=== PATIENT | male | born 1990 | race Caucasian/White ===

== ENCOUNTER 2022-11-14 15:34 | Outpatient (CLI) | payer BC, SELFPAY ==
--- NOTE | ~2022-11-14 | CT_ITS ---
EXAMINATION: CT sinus wo con DATE: 11/14/2022 15:51 INDICATION: Chronic sinusitis. TECHNIQUE: Computed tomography (CT) of the sinuses was performed without intravenous contrast. The mA was adjusted according to patient size. Iterative reconstruction technique was employed. Exam dose: 399.18 mGy-cm total exam DLP. COMPARISON: 11/27/2016 CT sinuses FINDINGS: Anterior plate and screws are noted along the left inferior orbital rim. Additional plate a nd screws along the deep breast anterior wall of left maxillary antrum. Rightward deviation of the nasal septum. Moderate soft tissue prominence of the nasal turbinates, lef t greater than right. There are bilateral nasal antral windows including resection of both uncinate processes. Moderately p rominent mucoperiosteal thickening of both maxillary sinuses. The frontal sinuses, ethmoid air cells and right sphenoid sinus are unremarkable. 7.5 x 10 mm polyp or mucous retention cyst of the anteromedial wall of the left sphenoid sinus. The mastoid air cells are well-developed and aerated bilaterally. IMPRESSION: Postoperative change (plates and screws) of left inferior orbital rim and the breast ant erior wall left maxillary antrum Bilateral nasal antral windows Moderately prominent mucoperiosteal thickening of the maxillary sinuses 7.5 x 10 mm polyp or mucous retention cyst of left sphenoid sinus Reviewed, dictated and finalized at [facility]. Reviewed, dictated and finalized at location [] IMPRESSION: Postoperative change (plates and screws) of left inferior orbital rim and the breast anterior wall left maxillary antrum Bilateral nasal antral windows Moderately prominent mucoperiosteal thickening of the maxillary sinuses 7.5 x 10 mm polyp or mucous retention cyst of left sphenoid sinus
== END 2022-11-14 15:35 ==
LOC: GOSHIMG 15:36
PROVIDERS: PCP Otolaryngology; Visit Provider Otolaryngology
DX: J01.90 Acute sinusitis, unspecified (principal)
CPT/HCPCS: 70486

== ENCOUNTER 2024-03-11 08:36 | Outpatient (CLI) | payer BC, SELFPAY ==
--- NOTE | ~2024-03-11 | XR_ITS ---
EXAMINATION: XR thoracic spine 2V, [id number] DATE: 03/11/2024 08:54 INDICATION: Neck and mid back pain with bilateral arm numbness TECHNIQUE: 1. AP, lateral and open-mouth odontoid views of the cervical spine were obtained. 2. AP, lateral and lateral swimmer's views of the thoracic spine were obtained. COMPARISON: None. FINDINGS: Cervical spine: There is straightening of the normal cervical lordosis. 5 degrees cervical levocurvature. Vertebral b odalis heights are normal. Moderate disc height loss with small anterior and posterior endplate osteophy kelly at C6-C7, bladder resulting in mild central canal stenosis. There is multilevel mild cervical fac et and uncovertebral osteoarthritis. Prevertebral soft tissues are unremarkable.. Thoracic spine: 4 degrees mid thoracic dextrocurvature. Vertebral body heights are normal. Moderate disc height loss at a couple mid thoracic levels, likely T6-T7 and T7-T8 with mild disc height loss at many of the rem aining thoracic levels. Visualized portion of lungs are clear with no evident pleural effusion or pne umothorax. Heart size is normal. IMPRESSION: 1. Mild to moderate lower cervical and mid thoracic predominant spondylosis. Reviewed, dictated and finalized at [facility]. IMPRESSION: 1. Mild to moderate lower cervical and mid thoracic predominant spondylosis.
== END 2024-03-11 08:37 | disposition home or self-care (01) ==
PROVIDERS: PCP Nurse Practitioner Family; Visit Provider Nurse Practitioner Family
DX: M47.812 Spondylosis without myelopathy or radiculopathy, cervical region (principal); M47.814 Spondylosis without myelopathy or radiculopathy, thoracic region
CPT/HCPCS: 72040; 72070

== ENCOUNTER 2024-05-24 12:43 | Outpatient (CLI) | payer BC, SELFPAY ==
--- NOTE | 2024-05-24 14:15 | NEURO_ITS ---
Impression: # Complains of pain and numbness of hands. ? # Left moderate Carpal Tunnel Syndrome. ? # Right mild Carpal Tunnel Syndrome. ? # No ulnar neuropathy. Nerve Conduction Studies Anti Sensory Summary Table ?Stim Site NR Peak (ms) P-T Amp (?V) Site1 Site2 Delta-P (ms) Dist (cm) Dashawn (m/s) Left Median Anti Sensory (2-3nd Digit) Wrist ? 4.7 11.4 Wrist 2-3nd Digit 4.7 14.0 30 Wrist ? 5.7 9.7 Wrist 2-3nd Digit 4.7 14.0 30 Right Median Anti Sensory (2-3nd Digit) Wrist ? 3.9 10.0 Wrist 2-3nd Digit 3.9 14.0 36 Wrist ? 3.8 17.0 Wrist 2-3nd Digit 3.9 14.0 36 Left Radial Anti Sensory (Base 1st Digit) Wrist ? 2.2 15.5 Wrist Base 1st Digit 2.2 0.0 Right Radial Anti Sensory (Base 1st Digit) Wrist ? 2.3 17.8 Wrist Base 1st Digit 2.3 0.0 Left Ulnar Anti Sensory (5th Digit) Wrist ? 2.7 26.0 Wrist 5th Digit 2.7 14.0 52 Right Ulnar Anti Sensory (5th Digit) Wrist ? 2.8 13.3 Wrist 5th Digit 2.8 14.0 50 Motor Summary Table ?Stim Site NR Onset (ms) O-P Amp (mV) Site1 Site2 Delta-0 (ms) Dist (cm) Dashawn (m/s) Left Median Motor (Abd Poll Brev) Wrist ? 5.4 2.2 Elbow Wrist 4.7 31.0 66 Elbow ? 10.1 2.7 Right Median Motor (Abd Poll Brev) Wrist ? 3.8 6.2 Elbow Wrist 5.7 31.0 54 Elbow ? 9.5 5.3 Left Ulnar Motor (Abd Dig Minimi) Wrist ? 2.7 5.7 A Elbow Wrist 5.5 32.0 58 A Elbow ? 8.2 3.6 Right Ulnar Motor (Abd Dig Minimi) Wrist ? 3.1 3.1 A Elbow Wrist 5.7 34.0 60 A Elbow ? 8.8 2.8 F Wave Studies ?NR F-Lat (ms) L-R F-Lat (ms) Left Median (Mrkrs) (Abd Poll Brev) ? 30.26 0.88 Right Median (Mrkrs) (Abd Poll Brev) ? 31.13 0.88 Left Ulnar (Mrkrs) (Abd Dig Min) ? 30.94 0.41 Right Ulnar (Mrkrs) (Abd Dig Min) ? 31.35 0.41 EMG ?Side Muscle Nerve Root Ins Act Fibs Amp Dur Recrt Comment Right 1stDorInt Ulnar C8-T1 Nml Nml Nml Nml Nml Right Ext Indicis Radial (Post Int) C7-8 Nml Nml Nml Nml Nml Right Ext Digitorum Radial (Post Int) C7-8 Nml Nml Nml Nml Nml Right BrachioRad Radial C5-6 Nml Nml Nml Nml Nml Right PronatorTeres Median C6-7 Nml Nml Nml Nml Nml Right Abd Poll Brev Median C8-T1 Nml Nml Nml Nml Nml Right ABD Dig Min Ulnar C8-T1 Nml Nml Nml Nml Nml Left 1stDorInt Ulnar C8-T1 Nml Nml Nml Nml Nml Left Ext Indicis Radial (Post Int) C7-8 Nml Nml Nml Nml Nml Left Ext Digitorum Radial (Post Int) C7-8 Nml Nml Nml Nml Nml Left BrachioRad Radial C5-6 Nml Nml Nml Nml Nml Left PronatorTeres Median C6-7 Nml Nml Nml Nml Nml Left Abd Poll Brev Median C8-T1 Nml Nml Nml Nml Nml Left ABD Dig Min Ulnar C8-T1 Nml Nml Nml Nml Nml Right Biceps Musculocut C5-6 Nml Nml Nml Nml Nml Right Triceps Radial C6-7-8 Nml Nml Nml Nml Nml Right Deltoid Axillary C5-6 Nml Nml Nml Nml Nml Left Biceps Musculocut C5-6 Nml Nml Nml Nml Nml Left Triceps Radial C6-7-8 Nml Nml Nml Nml Nml Left Deltoid Axillary C5-6 Nml Nml Nml Nml Nml MTDD
== END 2024-05-24 12:44 | disposition home or self-care (01) ==
LOC: ANHNEURO 12:44
PROVIDERS: PCP Nurse Practitioner Family; Visit Provider Nurse Practitioner Family
DX: G54.2 Cervical root disorders, not elsewhere classified (principal); M43.02 Spondylolysis, cervical region; M43.04 Spondylolysis, thoracic region
CPT/HCPCS: 95886; 95911

== ENCOUNTER → 2024-05-29 15:24 | Emergency (ER) | payer BC, SELFPAY ==
[2024-05-29 15:35] VITALS: BP 134/79; PULSE 97; RESP 16; TEMP 37; O2SAT 100
== END | disposition left against medical advice (07) ==
PROVIDERS: Emergency Provider Nurse Practitioner Family; PCP Nurse Practitioner Family
DX: J01.90 Acute sinusitis, unspecified (principal); F17.290 Nicotine dependence, other tobacco product, uncomplicated; F12.90 Cannabis use, unspecified, uncomplicated; K21.9 Gastro-esophageal reflux disease without esophagitis
CPT/HCPCS: 99213; G0463

== ENCOUNTER 2024-05-30 13:08 | Emergency (ER) | payer BC, SELFPAY ==
--- NOTE | 2024-05-30 13:48 | ED.URI ---
HPI - URI/Sore Throat General Chief Complaint: Upper Respiratory Infection Stated Complaint: Sinus/Left Side Facial Swelling Time Seen by Provider: 05/30/24 13:48 Source: patient, RN notes reviewed and old records reviewed Mode of arrival: ambulatory Limitations: no limitations History of Present Illness HPI Narrative: 34-year-old male presents to the [facility] with complaints of left-sided swelling, sinus congestion, pain and pressure. States has been going on for over a week. Has a history chronic sinus issues had seen ENT past. Patient with significant surgeries to the left side a space as well as wearing dentures. Related Data Home Medications ?Medication ?Instructions ?Recorded ?Confirmed ?Last Taken ?Type naproxen 500 mg tablet 500 mg PO Q12H 05/30/24 05/30/24 Unknown History Allergies Allergy/AdvReac Type Severity Reaction Status Date / Time Cephalosporins Allergy Severe Hives / Verified 05/30/24 13:44 Red Face Penicillins Allergy Unknown Unknown Verified 05/30/24 13:44 Review of Systems Review of Systems: All systems reviewed & are unremarkable except as noted in HPI and below Constitutional: Constitutional: Reports no additional constitutional complaints ENT: Reports as per HPI Cardiovascular: Cardiovascular: Reports no additional cardiovascular complaints, Denies chest pain and Denies dyspnea Respiratory: Respiratory: Reports no additional respiratory complaints, Denies chest congestion, Denies cough and Denies dyspnea Musculoskeletal: Musculoskeletal: Reports no additional musculoskeletal complaints Integumentary/Breasts: Skin/Breast: Reports system reviewed and no additional complaints, except as docu PMFSH Past Medical History Medical History Sinus problem GERD (gastroesophageal reflux disease) Fracture orbital fx, lt hand fx Surgical History Surgical History History of orthopedic surgery lt hand, orbital fx repair H/O vascular surgery multiple veins removed from lungs Family History Family History Mother Thyroid disorder Grandparent Lymphoma Grandparent Cerebrovascular accident Thyroid disorder Social History Social History Smoking packs per day: 1 Smoking cigarettes per day: 20.0 Years smoked: 5 Smoking pack-years: 5.00 Smoking status: Current every day smoker Tobacco type: e-cigarettes/vaping Alcohol intake: never Substance use: current Substance use type: marijuana Comments At the time of my signature, I reviewed and agree with the nursing past medical, surgical, social, and family history. There is no relevant family history pertinent to the patient complaint. Exam Const: General: cooperative, healthy appearing, comfortable, no acute distress, well developed, alert and well nourished Nutritional Appearance: well nourished Orientation/consciousness: patient oriented x3 Limitations: no limitations HENMT: Head: normal to inspection and no raccoon eyes Ears: hearing grossly normal bilaterally, external ears normal, TM's normal bilaterally, EAC's normal, mastoids normal and no periauricular adenopathy Face/Nose/Sinus: Normal nares present, Normal nasal mucous membranes and turbinates present, No ecchymosis, No erythema, edema (Left sinus, cheek swelling) and sinus tenderness (Left side) Face and sinus: normal facial exam, face symmetric and no erythema Mouth: Yes Normal oral and palatal mucosa present, Yes lip normal, Yes tongue normal and Yes moist mucous membranes Teeth and gingiva: gingiva abnormal edematous (Left upper with erythema) Throat: posterior oropharynx normal, uvula midline and no uvular edema Eyes: General: appearance normal, both eyes and all related structures Neck: Neck: normal visual inspection, full ROM, no lymphadenopathy and no meningeal signs Chest: Chest palpation & inspection: normal inspection of the chest Resp: Effort & Inspection: normal respiratory effort and able to speak in complete sentences Cardio: Rate: regular rate Skin: General skin exam: normal color and no rashes or lesions noted Neuro: General: patient oriented x3, gait normal, moves all extremities and no meningeal signs Cognition (Neuro): normal cognition Speech: normal speech Gait exam (Neuro): Normal gait present Extrem: General: normal to inspection, full ROM, capillary refill normal and normal gait Psych: Appearance: grossly normal and well kempt Mental Status: mental status grossly normal Speech and movement: Normal speech and movement present and Clear speech present Affect: normal affect Attitude: cooperative Course Course Level of Care: Express Care Visit Vital Signs Vital signs: Vital Signs Temperature 97.3 F L 05/30/24 13:53 Pulse Rate 98 05/30/24 13:53 Respiratory Rate 16 05/30/24 13:53 Blood Pressure 124/79 05/30/24 13:53 Pulse Oximetry 99 05/30/24 13:53 Oxygen Delivery Room Air 05/30/24 13:53 Temperature 97.3 F L 05/30/24 13:53 Pulse Rate 98 05/30/24 13:53 Respiratory Rate 16 05/30/24 13:53 Blood Pressure 124/79 05/30/24 13:53 Pulse Oximetry 99 05/30/24 13:53 Oxygen Delivery Room Air 05/30/24 13:53 Reviewed MDM - URI/Sore Throat MDM Narrative Medical decision making narrative: Patient sitting in exam room. Nontoxic, vitals stable. Patient presents with left-sided facial swelling, history of chronic sinus issues Discussed with patient sinusitis verses dental infections, could also concern for an abscess with of symptoms get worse he should be following up in the ER or at least seeing ENT or a dental provider for further evaluation Patient appropriate for outpatient treatment and follow-up Discharge instructions reviewed with patient, as well as provided in writing per nursing staff. The instructions also include specific and strict return/GO TO THE ER as well as f/u information. All questions have been answered, and the patient deny any further questions with discharge and discharge plan. Some parts of this dictation were generated by voice recognition software and may contain typographical and/or grammatical inaccuracies. Differential Diagnosis Differential diagnosis: Likely upper respiratory infection, otitis media, sinusitis and viral infection Critical Care Time Critical Care Time Critical Care Time: No Discharge Plan Discharge Clinical Impression: Sinusitis Qualifiers: Sinusitis location: unspecified location Chronicity: acute Recurrence: not specified as recurrent Qualified Code(s): J01.90 - Acute sinusitis, unspecified Patient Disposition: Home, Self-Care Condition: Stable Instructions: Antibiotic Form, Sinusitis (ED) Additional Instructions: Take Tylenol or Motrin for pain. Use a humidifier or vaporizer at night. Take Medications as prescribed. Drink plenty of water. 8-10 glasses per day. Use flonase 2 times per day for 5 days then daily Take mucinex 2 times per day and be sure to take with 8oz of water. Follow up with Primary provider if not getting better. Follow-up with ENT or dental provider Go directly to the emergency room for new or worsening symptoms Patient Language: Icelandic Prescriptions: New doxycycline monohydrate 100 mg tablet 100 mg PO BID Qty: 20 0RF No Action naproxen 500 mg tablet 500 mg PO Q12H bupropion HCl [Wellbutrin XL] 300 mg tablet extended release 24 hr 300 mg PO DAILY Qty: 90 3RF baclofen 10 mg tablet 10 mg PO QHS PRN (Reason: muscle spasm) Qty: 30 0RF testosterone 20.25 mg/1.25 gram (1.62 %) gel in metered-dose pump 1 pump topical DAILY Qty: 75 2RF Rx Instructions: apply 1 pump amount over max area of ONE upper arm and shoulder dextroamphetamine-amphetamine [Adderall XR] 20 mg capsule,extended release 24hr 20 mg PO DAILY Qty: 30 0RF hydroxyzine pamoate 25 mg capsule See Rx Instructions .ROUTE .COMPLEX Qty: 270 0RF Dose Instruction: TAKE 1 CAPSULE BY MOUTH THREE TIMES DAILY Rx Instructions: TAKE 1 CAPSULE BY MOUTH THREE TIMES DAILY tadalafil 10 mg tablet See Rx Instructions .ROUTE .COMPLEX Qty: 30 0RF Dose Instruction: TAKE 1 TABLET BY MOUTH NEEDED FOR SEXUAL ACTIVITY APPROXIMATELY 30 MINUTES PRIOR. MAX OF 1 TABLET EVERY 24 HOURS Rx Instructions: TAKE 1 TABLET BY MOUTH NEEDED FOR SEXUAL ACTIVITY APPROXIMATELY 30 MINUTES PRIOR. MAX OF 1 TABLET EVERY 24 HOURS Follow-up/Referrals: Tasneem Myles APRN [Primary Care Provider] - 1 Week ([facility] ) Stand Alone Forms: Work/School Release IP Time of Disposition: 14:09
[2024-05-30 13:53] VITALS: BP 124/79; PULSE 98; RESP 16; TEMP 36.3; O2SAT 99
== END 2024-05-30 14:09 | disposition home or self-care (01) ==
PROVIDERS: Emergency Provider Nurse Practitioner; PCP Nurse Practitioner Family
DX: J01.90 Acute sinusitis, unspecified (principal); F17.210 Nicotine dependence, cigarettes, uncomplicated; Z79.1 Long term (current) use of non-steroidal anti-inflammatories (NSAID)
CPT/HCPCS: 99213; G0463

== ENCOUNTER 2025-03-06 15:48 | Emergency (ER) | payer BC, SELFPAY ==
--- NOTE | 2025-03-06 15:57 | ED_ITS ---
HPI - Skin/Abscess/Foreign Bdy General Chief complaint: Skin/Abscess/Foreign Body Stated complaint: Possible Yeast Infection Time Seen by Provider: 03/06/25 16:05 Source: patient Mode of arrival: ambulatory Limitations: no limitations History of Present Illness HPI narrative: Ricardo is a 35-year-old male patient presenting with complaints of a possible yeast infection to his penis x2 weeks. He reports he just finished up around of Augmentin and developed a itchy red rash on the head of his penis. Denies any concerns for STIs. Denies any penile discharge. No fevers, chills, body aches. Has been applying some old yeast ointment medication and it has not been helping. Related Data Allergies Allergy/AdvReac Type Severity Reaction Status Date / Time Cephalosporins Allergy Severe Hives / Verified 03/06/25 16:02 Red Face Review of Systems Review of Systems: Pertinent positives per HPI. Patient denies any fever, chills, headache, visual changes, dizziness, cough, runny nose, sore throat, shortness of breath, chest pain, palpitations, nausea, vomiting, diarrhea, constipation, abdominal pain, or any urinary issues. [facility] Past Medical History Medical History Sinus problem GERD (gastroesophageal reflux disease) Fracture orbital fx, lt hand fx Surgical History Surgical History History of orthopedic surgery lt hand, orbital fx repair H/O vascular surgery multiple veins removed from lungs Family History Family History Mother Thyroid disorder Grandparent Lymphoma Grandparent Cerebrovascular accident Thyroid disorder Social History Social History Smoking packs per day: 1 Smoking cigarettes per day: 20.0 Years smoked: 5 Smoking pack-years: 5.00 Smoking status: Current every day smoker Tobacco type: e-cigarettes/vaping Alcohol intake: never Substance use: current Substance use type: marijuana Comments At the time of my signature, I reviewed and agree with the nursing past medical, surgical, social, and family history. There is no relevant family history pertinent to the patient complaint. Exam Narrative: General: Well-developed, well nourished, in no apparent distress. Head: Normocephalic, atraumatic. Cardio: Regular rate and rhythm, s1 and s2 normal, no murmur appreciated. Resp: Clear to auscultation bilaterally, no rhonchi, rales, wheezing or rubs. Abdomen: Soft, pliable, bowel sounds present in all quadrants, non-tender to palpation, no organomegly, no CVAT tenderness. : Circumcised male with 3 small red, raised, itchy bumps without discharge or vesicular appearance to the base of the penile head. No penile drainage or other lesions noted. Course Course Emergency Course: Portions of this record may have been created with voice recognition software. Level of Care: Express Care Visit Vital Signs Vital signs: Vital Signs Temperature 37.3 C 03/06/25 15:59 Pulse Rate 81 03/06/25 15:59 Respiratory Rate 16 03/06/25 15:59 Blood Pressure 140/87 03/06/25 15:59 Pulse Oximetry 97 03/06/25 15:59 Oxygen Delivery Room Air 03/06/25 15:59 Temperature 37.3 C 03/06/25 15:59 Pulse Rate 81 03/06/25 15:59 Respiratory Rate 16 03/06/25 15:59 Blood Pressure 140/87 03/06/25 15:59 Pulse Oximetry 97 03/06/25 15:59 Oxygen Delivery Room Air 03/06/25 15:59 Vital signs reviewed MDM - Skin/Abscess/Foreign Bdy MDM Narrative Medical decision making narrative: At the time of visit patient is resting comfortably on the exam table. Patient appears to be nontoxic. possible yeast infection to his penis x2 weeks. He reports he just finished up around of Augmentin and developed a itchy red rash on the head of his penis. Denies any concerns for STIs. Denies any penile discharge. No fevers, chills, body aches. Has been applying some old yeast ointment medication and it has not been helping. On exam patient has 3 areas of small red, raised, itchy bumps without discharge or vesicular appearance to thebase of the penis head. No penile drainage or other lesions noted. Plan: I suspect patient has balanitis. Prescription for nystatin and mupirocin cream was sent to the pharmacy. Proper hygiene was discussed with the patient he voiced understanding. Supportive measures were discussed with the patient and they voiced understanding discharge instructions and agrees to treatment plan. Return precautions reviewed Differential Diagnosis Differential diagnosis: Likely abscess of skin or subcutaneous tissue, cellulitis, eczema and other (Balanitis, herpes,, dermatitis) Discharge Plan Discharge Clinical Impression: Balanitis Patient Disposition: Home Condition: Stable Instructions: Antibiotic Form, Belinda (ED) Additional Instructions: Keep area clean and dry Apply nystatin cream/mupirocin cream to the affected area twice daily x1 week Follow-up with your PCP in 1 week if symptoms persist Patient Language: Citizen Of [place] Prescriptions: New nystatin 100,000 unit/gram cream 1 applic topical BID 7 Days Qty: 30 0RF mupirocin [Centany] 2 % ointment 1 applic topical BID 7 Days Qty: 22 0RF No Action tadalafil 10 mg tablet See Rx Instructions .ROUTE .COMPLEX Qty: 30 6RF Dose Instruction: TAKE 1 TABLET BY MOUTH NEEDED FOR SEXUAL ACTIVITY APPROXIMATELY 30 MINUTES PRIOR. MAX OF 1 TABLET EVERY 24 HOURS Rx Instructions: TAKE 1 TABLET BY MOUTH NEEDED FOR SEXUAL ACTIVITY APPROXIMATELY 30 MINUTES PRIOR. MAX OF 1 TABLET EVERY 24 HOURS Follow-up/Referrals: PHYSICIAN,INTELLIGENCE CONSULTANT [Primary Care Provider, Internal Medicine] Time of Disposition: 16:06 Quality NIHSS Nursing Documentation ED NIHSS nursing documentation: reviewed/agree
[2025-03-06 15:59] VITALS: BP 140/87; PULSE 81; RESP 16; TEMP 37.3; O2SAT 97
== END 2025-03-06 16:15 | disposition home or self-care (01) ==
PROVIDERS: Emergency Provider Nurse Practitioner Family
DX: N48.1 Balanitis (principal); F17.290 Nicotine dependence, other tobacco product, uncomplicated; F12.90 Cannabis use, unspecified, uncomplicated; K21.9 Gastro-esophageal reflux disease without esophagitis
CPT/HCPCS: 99213; G0463